=== PATIENT | male | born 1955 | race Caucasian/White ===

== ENCOUNTER 2019-06-06 12:59 | Emergency (ER) | payer BC, OTHER ==
[2019-06-06 13:08] VITALS: TEMP 97.8
[2019-06-06 13:18] LABS: Glucose,Whole Blood 113 mg/dL (75-99)
[2019-06-06] MEDS ORDERED: ONDANSETRON 4 MG/2 ML VIAL IVP STA (13:22)
[2019-06-06] MEDS ORDERED: MORPHINE SULFATE 4 MG/ML SYRINGE IVP STA (13:22)
[2019-06-06 13:43] LABS: Albumin 4.8 g/dL (3.5-5.0); Calcium 10.4 mg/dL (8.4-10.2); Total Bilirubin 1.6 mg/dL (0.2-1.3); Total Protein 8.3 g/dL (6.3-8.2)
[2019-06-06 13:44] LABS: Basophils % (A) 0 %; Eosinophils # (A) 0.2 k/uL (0-0.7); Eosinophils % (A) 3 %; HCT 46.5 % (39.0-53.0); HGB 15.9 gm/dL (13.0-17.5); Lymphocytes # (A) 1.7 k/uL (1.0-4.8); Lymphocytes % (A) 24 %; MCH 30.9 pg (25.0-35.0); MCHC 34.1 g/dL (31.0-37.0); MCV 90.6 fL (80.0-100.0); Mean Platelet Volume 6.9; Monocytes # (A) 0.3 k/uL (0-1.0); Monocytes % (A) 5 %; Neutrophils # (A) 4.7 k/uL (1.3-7.7); Neutrophils % (A) 67 %; Platelet Count 202 k/uL (150-450); RBC 5.13 m/uL (4.30-5.90); RDW 11.9 % (11.5-15.5); WBC 7.1 k/uL (3.8-10.6)
[2019-06-06 13:46] LABS: Prothrombin Time 10.6 sec (9.0-12.0)
--- NOTE | 2019-06-06 14:13 | ED ---
Head Injury HPI - General Chief complaint: Head Injury Stated complaint: head injury Time Seen by Provider: 06/06/19 13:05 Source: patient Mode of arrival: ambulatory Limitations: no limitations - History of Present Illness Initial comments: The patient is a 63-year-old male with past medical history of hypertension and bradycardia who presents the emergency department after head trauma. The patient was out cutting a tree. He was not wearing a helmet. was beside the patient when a tree limb hit him in the right occiput. The patient was knoc ked to the ground. He did sustain an abrasion to his right scalp. The patient did not lose consciousness at this time. He was able to get up and ambulate up towards his house. As the patient was approaching his house he ended up having a syncopal episode. He is slumped to the ground. reports he then had 5 minutes of seizure-like activity. He has had reported syncopal episodes in the past however denies seizure history. It spontaneously stopped after 5 minutes. The patient was then confused with slurred speech. No unilateral numbness or weakness. The patient does report to a 10 out of 10 headache. Denies visual changes. No facial droop noted. The patient is complaining of right-sided neck pain and thoracic back pain. Denies lumbar back pain or pain into his lower extremities. Denies any sensory loss. He does not take any blood thinning medications. EMS did place him in a c-collar and transported him to our facility. - Related Data Home Medications Medication Instructions Recorded Confirmed Levothyroxine Sodium [Synthroid] 75 mcg PO HS 04/18/15 06/06/19 Cholecalciferol [Vitamin D3 (25 1,000 unit PO DAILY 06/06/19 06/06/19 Mcg = 1000 Iu)] Lisinopril 20 mg PO HS 06/06/19 06/06/19 Multivitamins, Thera [Multivitamin 1 tab PO DAILY 06/06/19 06/06/19 (formulary)] [place]-3 Fatty Acids/Fish Oil [Fish 1 cap PO DAILY 06/06/19 06/06/19 Oil 1,000 mg Softgel] Allergies/Adverse reactions: Allergies Allergy/AdvReac Type Severity Reaction Status Date / Time No Known Allergies Allergy Verified 06/06/19 13:38 Review of Systems ROS Statement: Those systems with pertinent positive or pertinent negative responses have been documented in the HPI. ROS Other: All systems not noted in ROS Statement are negative. Past Medical History Past Medical History: Hypertension, Thyroid Disorder Additional Past Medical History / Comment(s): bradycardia History of Any Multi-Drug Resistant Organisms: None Reported Past Surgical History: Appendectomy Past Psychological History: No Psychological Hx Reported Smoking Status: Former smoker Past Alcohol Use History: Rare Past Drug Use History: None Reported General Exam Limitations: altered mental status General appearance: alert, in no apparent distress Head exam: Present: other (The patient has an abrasion to his right occiput. There is a small amount of dried blood. Dry blood is removed and demonstrates several scratches. No laceration identified. There is a surrounding hematoma. No palpable skull fracture.) Eye exam: Present: PERRL, EOMI Pupils: Present: normal accommodation ENT exam: Present: normal exam, normal oropharynx, mucous membranes moist Neck exam: Present: tenderness (The patient has tenderness to palpation of the right paraspinal muscles. No midline tenderness. No step-offs or deformities appreciated along the cervical, thoracic or lumbar spine) Respiratory exam: Present: normal lung sounds bilaterally. Absent: wheezes, rales, rhonchi Cardiovascular Exam: Present: normal rhythm, bradycardia GI/Abdominal exam: Present: soft. Absent: tenderness, guarding, rebound, rigid Extremities exam: Present: normal inspection, full ROM. Absent: tenderness Back exam: Present: normal inspection Neurological exam: Present: alert, altered, other (Patient has no responses) Psychiatric exam: Present: normal mood, flat affect Skin exam: Present: warm, dry, intact Course Vital Signs 06/06/19 06/06/19 06/06/19 13:02 13:35 14:20 Temperature 97.8 F Pulse Rate 48 L 51 L 48 L Respiratory 17 17 17 Rate Blood Pressure 135/89 137/98 131/82 O2 Sat by Pulse 98 99 96 Oximetry 06/06/19 15:20 Temperature 97.8 F Pulse Rate 47 L Respiratory 18 Rate Blood Pressure 100/51 O2 Sat by Pulse 97 Oximetry Medical Decision Making - Medical Decision Making On arrival the patient was placed into room 9. A thorough history and physical exam was performed. Because of the patient's concerning symptoms of head trauma with syncope and seizure, I did recommend that he go over immediately for imaging. The patient was taken to the CT suite we did perform CT imaging of the patient's brain, C-spine and T-spine. The patient is returned to his room. He was given 4 mg of morphine and 4 mg of Zofran for his pain and nausea. I had been established by EMS. I cleansed the patient's right scalp and it reveals no lacerations needing repair. Laboratory studies were obtained. Laboratory studies demonstrate a hemoglobin 15.9, hematocrit 46.5 and platelets of 202. Coags are normal. Chemistries show a glucose of 119. CT the patient's brain and inserts no acute intracranial abdomen. Mild degenerative change. Mild chronic maxillary and ethmoidal sinus mucosal disease. CT of the cervical spine demonstrates no acute osseous lesion. Monitor degenerative change. CT the patient's thoracic spine demonstrates no acute osseous lesion. Mild degenerative change. Minimal wedging of the T9 vertebral body which appears chronic. Chest x-ray demonstrates no acute findings. I discussed these results with the patient and his family at bedside. The patient is now alert and oriented 3. No slurred speech appreciated. I did recommend overnight observation. Due to lack of neurosurgical capabilities, I did recommend transfer. The patient does agree to transfer to [facility]. I called and discussed the case with Dr. Brown did accept transfer. The patient remained in stable condition. COBRA forms were filled out the patient was transferred in stable condition - Lab Data Result diagrams: 06/06/19 13:12 06/06/19 13:12 Lab Results 06/06/19 06/06/19 06/06/19 Range/Units 13:12 13:12 13:12 WBC 7.1 (3.8-10.6) k/uL RBC 5.13 (4.30-5.90) m/uL Hgb 15.9 (13.0-17.5) gm/dL Hct 46.5 (39.0-53.0) % MCV 90.6 (80.0-100.0) fL MCH 30.9 (25.0-35.0) pg MCHC 34.1 (31.0-37.0) g/dL RDW 11.9 (11.5-15.5) % Plt Count 202 (150-450) k/uL Neutrophils % 67 % Lymphocytes % 24 % Monocytes % 5 % Eosinophils % 3 % Basophils % 0 % Neutrophils # 4.7 (1.3-7.7) k/uL Lymphocytes # 1.7 (1.0-4.8) k/uL Monocytes # 0.3 (0-1.0) k/uL Eosinophils # 0.2 (0-0.7) k/uL Basophils # 0.0 (0-0.2) k/uL PT 10.6 (9.0-12.0) sec INR 1.0 (<1.2) APTT 23.0 (22.0-30.0) sec Sodium 141 (137-145) mmol/L Potassium 4.0 (3.5-5.1) mmol/L Chloride 103 (98-107) mmol/L Carbon Dioxide 25 (22-30) mmol/L Anion Gap 13 mmol/L BUN 18 (9-20) mg/dL Creatinine 1.17 (0.66-1.25) mg/dL Est GFR (CKD-EPI)AfAm 77 (>60 ml/min/1.73 sqM) Est GFR (CKD-EPI)NonAf 66 (>60 ml/min/1.73 sqM) Glucose 119 H (74-99) mg/dL POC Glucose (mg/dL) (75-99) mg/dL POC Glu Skin Care Consultant ID Calcium 10.4 H (8.4-10.2) mg/dL Total Bilirubin 1.6 H (0.2-1.3) mg/dL AST 24 (17-59) U/L ALT 40 (21-72) U/L Alkaline Phosphatase 64 (38-126) U/L Creatine Kinase 66 (55-170) U/L Troponin I (0.000-0.034) ng/mL Total Protein 8.3 H (6.3-8.2) g/dL Albumin 4.8 (3.5-5.0) g/dL Prolactin (2.1-17.7) ng/mL 06/06/19 06/06/19 06/06/19 Range/Units 13:12 13:12 13:17 WBC (3.8-10.6) k/uL RBC (4.30-5.90) m/uL Hgb (13.0-17.5) gm/dL Hct (39.0-53.0) % MCV (80.0-100.0) fL MCH (25.0-35.0) pg MCHC (31.0-37.0) g/dL RDW (11.5-15.5) % Plt Count (150-450) k/uL Neutrophils % % Lymphocytes % % Monocytes % % Eosinophils % % Basophils % % Neutrophils # (1.3-7.7) k/uL Lymphocytes # (1.0-4.8) k/uL Monocytes # (0-1.0) k/uL Eosinophils # (0-0.7) k/uL Basophils # (0-0.2) k/uL PT (9.0-12.0) sec INR (<1.2) APTT (22.0-30.0) sec Sodium (137-145) mmol/L Potassium (3.5-5.1) mmol/L Chloride (98-107) mmol/L Carbon Dioxide (22-30) mmol/L Anion Gap mmol/L BUN (9-20) mg/dL Creatinine (0.66-1.25) mg/dL Est GFR (CKD-EPI)AfAm (>60 ml/min/1.73 sqM) Est GFR (CKD-EPI)NonAf (>60 ml/min/1.73 sqM) Glucose (74-99) mg/dL POC Glucose (mg/dL) 113 H (75-99) mg/dL POC Glu Skin Care Consultant ID Sarah Santillan Calcium (8.4-10.2) mg/dL Total Bilirubin (0.2-1.3) mg/dL AST (17-59) U/L ALT (21-72) U/L Alkaline Phosphatase (38-126) U/L Creatine Kinase (55-170) U/L Troponin I <0.012 (0.000-0.034) ng/mL Total Protein (6.3-8.2) g/dL Albumin (3.5-5.0) g/dL Prolactin 28.4 H (2.1-17.7) ng/mL - EKG Data EKG Comments: EKG demonstrates a sinus bradycardia with premature atrial complexes. Ventricular rate of 53. CA interval 166. QRS 114. QTC 452. There are no acute ST segment elevations or depressions concerning for ischemic changes Disposition Clinical Impression: Closed head injury, Contusion of scalp, Concussion with loss of consciousness Disposition: OTHER INSTITUTION NOT DEFINED Condition: Stable Is patient prescribed a controlled substance at d/c from ED?: No Referrals: Uriel Bautista DO [Primary Care Provider] - 1-2 days Time of Disposition: 15:11 - Out of Hospital Transfer - Req. Specs Out of Hospital Transfer - Requested Specifics: Other Emergency Center ([facility])
--- NOTE | 2019-06-06 14:15 | CT ---
EXAMINATION TYPE: CT brain pilar leach DATE OF EXAM: 06/06/2019 COMPARISON: NONE HISTORY: tree branch smacked him in face, possible seizure, slurred speech CT DLP: 1426.3 mGycm Automated exposure control for dose reduction was used. TECHNIQUE: CT scan of the head and cervical spine are performed without contrast. FINDINGS: BRAIN: There are mild, generalized changes of sulcal prominence and ventriculomegaly, compatible with mild atrophy. There is mild, diffuse periventricular white matter lucency, compatible with chronic white matter isc hemic change. There is no acute focal lesion, mass effect or midline shift identified. I do not see e vidence of intracranial blood. There is mild mucosal thickening involving the maxillary and ethmoidal air cells bilaterally. The mas toid air cells are clear. The bony calvarium is intact. IMPRESSION: 1. NO ACUTE INTRACRANIAL ABNORMALITY. 2. MILD DEGENERATIVE CHANGE. 3. MILD, CHRONIC MAXILLARY AND ETHMOIDAL SINUS MUCOSAL DISEASE. CERVICAL SPINE: Visualized portions of the lungs are clear. Prevertebral soft tissues are normal. Vertebral body height and alignment are maintained. Atlantoaxial relationships are normal. There is d iffuse degenerative disc disease and hypertrophic spondylosis with relative sparing of C2-3. Diffuse uncovertebral joint disease. There is facet arthropathy present at C2-3 and C3-4 and also the C5-6 an d C6-7. No definite protrusion is seen. No fracture is identified. IMPRESSION: 1. NO ACUTE OSSEOUS LESION. 2. MODERATE DEGENERATIVE CHANGE.
--- NOTE | 2019-06-06 14:20 | CT ---
EXAMINATION TYPE: CT thoracic spine wo con DATE OF EXAM: 06/06/2019 COMPARISON: None HISTORY: No prior CT. No contrast. tree branch smacked him in face, possible seizure, slurred speech CT DLP: 1373.2 mGycm Automated exposure control for dose reduction was used. FINDINGS: There is a 4 cm rounded lesion seen involving the left kidney. There is a small sliding hia ibrahima hernia. There is dependent atelectasis within the dependent portions of the lungs. Paraspinal sof t tissues are otherwise normal. Vertebral body alignment are maintained. No fractures are identified. No protrusions are identified. The intervertebral foramina appear well maintained. There is minimal hypertrophic spondylosis in the mid dorsal spine and there is minimal wedging of the T9 vertebral body which appears chronic. IMPRESSION: 1. NO ACUTE OSSEOUS LESION. 2. MILD DEGENERATIVE CHANGE. 3. MINIMAL WEDGING OF THE T9 VERTEBRAL BODY, THIS APPEARS CHRONIC.
--- NOTE | 2019-06-06 14:25 | XR ---
EXAMINATION TYPE: XR chest 1V portable DATE OF EXAM: 06/06/2019 COMPARISON: NONE HISTORY: Pain and seizure TECHNIQUE: Single frontal view of the chest is obtained. FINDINGS: Heart and mediastinum are normal. Lungs are clear. Diaphragm is normal. There are chest le ads. There is no pleural effusion. IMPRESSION: No active cardiopulmonary disease. Normal heart.
[2019-06-06 15:22] VITALS: BP 100/51; PULSE 47; RESP 18
== END 2019-06-06 15:39 | disposition other institution (70) ==
LOC: EC 12:59
DX: S06.0X9A Concussion with loss of consciousness of unspecified duration, initial encounter (principal); S00.03XA Contusion of scalp, initial encounter; R11.0 Nausea; I10 Essential (primary) hypertension; E07.9 Disorder of thyroid, unspecified; Z79.890 Hormone replacement therapy; Z79.899 Other long term (current) drug therapy; Z87.891 Personal history of nicotine dependence; W20.8XXA Other cause of strike by thrown, projected or falling object, initial encounter
CPT/HCPCS: 36415; 93005; 80053; 82550; 84484; 85025; 85610; 85730; 84146; 71045; 72128; 72125; 70450; 99285; 96374; 96375; J2270; J2405

== ENCOUNTER → 2020-02-18 | Outpatient (CLI) | payer BC, OTHER | END | disposition home or self-care (01) | LOC: LABWHC1 10:06 | PROVIDERS: ATTEND Internal Medicine Cardiovascular Disease | DX: R00.1 Bradycardia, unspecified (principal) | CPT/HCPCS: 36415; 84443 ==

== ENCOUNTER 2021-01-20 10:51 | Day surgery (SDC) | payer OTHER ==
[2021-01-18 12:46] VITALS: BMI 30.4
[~2021-01-20 10:51] MED LIST: LACTATED RINGERS 1,000 ML IV SCH
[2021-01-20 11:23] VITALS: RESP 16; TEMP 97
[2021-01-20] MEDS ORDERED: LIDOCAINE 1% (10MG/ML) FOR IV START INTRADERMA ONE (11:28)
[2021-01-20] MEDS ORDERED: PROPOFOL 10 MG/ML 20 ML VIAL IV ONE (11:42)
--- NOTE | 2021-01-20 12:07 | P.PCN ---
Date of Procedure: 01/20/21 Procedure(s) Performed: BRIEF HISTORY: Patient is a 65 year-old pleasant white male scheduled for an elective colonoscopy as a part of screening for colorectal neoplasia. PROCEDURE PERFORMED: Colonoscopy. PREOPERATIVE DIAGNOSIS: Screening for colon cancer. IV sedation per Anesthesia. PROCEDURE: After informed consent was obtained, the patient, was brought into the endoscopy unit. IV sedation was administered by Anesthesia under continuous monitoring. Digital rectal examination was normal. Initially the Olympus CF-160 flexible video colonoscope was then inserted in the rectum, gradually advanced into the cecum without any difficulty. Careful examination was performed as the scope was gradually being withdrawn. Ileocecal valve and the appendiceal orifice were visualized and appeared normal. Prep was excellent. Mucosa of the cecum, ascending colon, transverse colon, descending colon, sigmoid colon, and rectum appeared normal. Retroflexion was performed in the rectum and monitor hemorrhoids were seen. The patient tolerated the procedure well. IMPRESSION: Normal-appearing colon from rectum to cecum with no evidence of colorectal neoplasia. Small internal hemorrhoids. RECOMMENDATIONS: Findings of this examination were discussed with the patient as well as his family. He was advised to have a repeat screening colonoscopy in 10 years.
[2021-01-20 12:26] VITALS: BP 143/86; PULSE 58
== END 2021-01-20 12:57 | disposition home or self-care (01) ==
LOC: ORWHC2ENDO 10:51
PROVIDERS: ATTEND Internal Medicine Gastroenterology
DX: Z12.11 Encounter for screening for malignant neoplasm of colon (principal); K64.8 Other hemorrhoids; Z79.890 Hormone replacement therapy; Z79.899 Other long term (current) drug therapy; R00.1 Bradycardia, unspecified; E07.9 Disorder of thyroid, unspecified
CPT/HCPCS: J2704; G0121

== ENCOUNTER → 2021-10-18 | Outpatient (CLI) | payer OTHER ==
--- NOTE | 2021-10-18 11:13 | XR ---
EXAMINATION TYPE: XR chest 2V DATE OF EXAM: 10/18/2021 COMPARISON: NONE TECHNIQUE: PA and lateral views submitted. HISTORY: Bradycardia and wheezing FINDINGS: The lungs are clear and there is no pneumothorax, pleural effusion, or focal pneumonia. Hypertrophi c and degenerative changes in the spine. Heart size normal. No overt failure. Small exostosis involvi ng the lower margin of the left humeral neck. IMPRESSION: 1. No acute process.
== END | disposition home or self-care (01) ==
LOC: RADXRYALE 10:41
PROVIDERS: ATTEND Physician Assistant
DX: R00.1 Bradycardia, unspecified (principal); R06.2 Wheezing
CPT/HCPCS: 71046

== ENCOUNTER → 2021-10-27 | Outpatient (CLI) | payer OTHER ==
[2021-10-27 11:45] LABS: HCT 48.4 % (39.6-50.0); HGB 15.6 g/dL (13.0-17.0); MCH 30.2 pg (27.0-32.0); MCHC 32.2 g/dL (32.0-37.0); MCV 93.6 fL (80.0-97.0); Mean Platelet Volume 11.2 fL (9.5-12.2); NRBC Per 100 WBC 0 /100 WBCS (0.0-0.0); Platelet Count 186 X 10*3/uL (140-440); RBC 5.17 X 10*6/uL (4.40-5.60); RDW 12.2 % (11.5-14.5); WBC 6.28 X 10*3/uL (4.50-10.00)
[2021-10-27 12:04] LABS: Potassium 5.1 mmol/L (3.5-5.5)
== END | disposition home or self-care (01) ==
LOC: LABWHC1 08:19
PROVIDERS: ATTEND Internal Medicine Cardiovascular Disease
DX: R42 Dizziness and giddiness (principal)
CPT/HCPCS: 36415; 80051; 84443; 85027

== ENCOUNTER → 2021-11-29 | Outpatient (CLI) | payer OTHER ==
[2021-11-29 11:35] LABS: Basophils % (A) 1 %; Eosinophils # (A) 0.6 k/uL (0-0.7); Eosinophils % (A) 11 %; HCT 48.1 % (39.0-53.0); HGB 16.2 gm/dL (13.0-17.5); Lymphocytes # (A) 1.7 k/uL (1.0-4.8); Lymphocytes % (A) 30 %; MCH 31.7 pg (25.0-35.0); MCHC 33.6 g/dL (31.0-37.0); MCV 94.5 fL (80.0-100.0); Mean Platelet Volume 8.3; Monocytes # (A) 0.3 k/uL (0-1.0); Monocytes % (A) 6 %; Neutrophils # (A) 2.8 k/uL (1.3-7.7); Neutrophils % (A) 49 %; Platelet Count 216 k/uL (150-450); RDW 12.4 % (11.5-15.5); WBC 5.7 k/uL (3.8-10.6)
[2021-11-29 15:40] LABS: Total Eosinophil Count 641 #EOS/uL (150-300)
[2021-11-30 16:19] LABS: Alternaria alternata IgE <0.10 kU/L; Aspergillus fumagatus IgE <0.10 kU/L; Birch IgE <0.10 kU/L; Cladosporian herbarum IgE <0.10 kU/L; Cockroach IgE <0.10 kU/L; Dog Dander IgE <0.10 kU/L; Elm IgE <0.10 kU/L; Maple (Box Elder) IgE 0.32 kU/L; Oak IgE <0.10 kU/L; Ragweed,Common IgE 0.25 kU/L; Red Top (Bentgrass) IgE <0.10 kU/L
[2021-11-30 19:45] LABS: Cat Epith & Dander IgE <0.10 kU/L; Dermato. farinae IgE 0.35 kU/L
== END | disposition home or self-care (01) ==
LOC: LABWHC1 09:53
PROVIDERS: ATTEND Internal Medicine
DX: Z00.00 Encounter for general adult medical examination without abnormal findings (principal)
CPT/HCPCS: 36415; 82785; 85008; 85025; 86003

== ENCOUNTER → 2023-07-23 | Outpatient (CLI) | payer MEDICARE ==
--- NOTE | 2023-07-23 09:39 | XR ---
EXAMINATION TYPE: XR foot complete LT DATE OF EXAM: 07/23/2023 8:51 AM CLINICAL INDICATION:Male, 68 years old with history of [id number] LT FOOT PAIN; [facility] COMPARISON: None TECHNIQUE: XR foot complete LT examined in the AP, oblique, and lateral projections. FINDINGS: No evidence of any acute osseous pathology. No evidence of soft tissue swelling. Degeneration changes worse at the first digit metatarsophalangeal joint with osteophyte formation keenan nt space narrowing. IMPRESSION: 1. No evidence of acute fracture. 2. 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
== END | disposition home or self-care (01) ==
LOC: RADXRYALE 08:38
PROVIDERS: ATTEND Physician Assistant Medical
DX: M19.072 Primary osteoarthritis, left ankle and foot (principal)